=== PATIENT | female | born 1960 | race African-American/Black ===

== ENCOUNTER 2018-09-07 16:26 | Emergency (ER) | payer OTHER | END 2018-09-07 19:56 | disposition home or self-care (01) | LOC: JERFT 16:26 ==

== ENCOUNTER 2018-12-22 13:14 | Emergency (ER) | payer OTHER ==
[2018-12-22 13:24] VITALS: BP 136/66; PULSE 89; TEMP 98.2; BMI 79.2
[2018-12-22] MEDS ORDERED: LIDOCAINE 5% TOPICAL PATCH TP ONE (14:02)
[2018-12-22] MEDS ORDERED: KETOROLAC TROMETHAMINE 60 MG/2 ML VIAL IM ONE (14:02)
[2018-12-22] MEDS ORDERED: METHOCARBAMOL 500 MG TABLET PO ONE (14:02)
--- NOTE | 2018-12-22 14:14 | PDOC ---
History of Present Illness - General Chief Complaint: Chronic pain Stated Complaint: BACK PAIN Time Seen by Provider: 12/22/18 13:52 History Source: Patient Exam Limitations: Clinical Condition - History of Present Illness Initial Comments: 12/22/18 14:07 Patient with h/o RA, DJD, asthma, sciatica and arthritis being followed up by orthopedics pain management at [facility] and being treated with diclofenac gel, gabapentin presenting with complains of worsening lower back radiating down b/l legs which has not been improving with gabapentin meds. Patient report she was on chronic steroids for rheumatoid arthritis but was told by her PCP she couldnt be taken any more steroids. Denies saddle paresthesia, fecal or urine incontinence. Patient request referral to community development specialist. Occurred: reports: other (2 months) Past History - Past Medical History Allergies/Adverse Reactions: Allergies Allergy/AdvReac Type Severity Reaction Status Date / Time No Known Allergies Allergy Verified 09/07/18 16:43 Home Medications: Ambulatory Orders Ketorolac Tromethamine [Toradol] 10 mg PO Q8H PRN #28 tablet 12/22/18 Lidocaine 5% Patch [Lidoderm -] 1 patch TP DAILY #30 patch 12/22/18 Methocarbamol [Robaxin -] 500 mg PO BID PRN #14 tablet 12/22/18 Asthma: Yes COPD: No Diabetes: Yes Other medical history: degenerative disc disease, rheumatoid arthritis,osteo - Immunization History Immunization Up to Date: No - Psycho Social/Smoking Cessation Hx Smoking History: Unknown if ever smoked Have you smoked in the past 12 months: No Information on smoking cessation initiated: No Hx Alcohol Use: No Drug/Substance Use Hx: No Review of Systems - Review of Systems Able to Perform ROS?: Yes Is the patient limited Chinese proficient: No Constitutional: No: Fever, Malaise, Weakness HEENTM: No: Symptoms Reported Respiratory: No: Symptoms reported Cardiac (ROS): No: Symptoms Reported ABD/GI: No: Nausea, Vomiting : No: Burning, Dysuria, Frequency, Flank Pain, Hematuria, Urgency Musculoskeletal: Yes: Symptoms Reported, See HPI, Back Pain (b/l lower back pain radiating down legs), Muscle Pain. No: Muscle Weakness Integumentary: No: Symptoms Reported, See HPI Neurological: Yes: Symptoms reported, See HPI, Numbness (posterior thigh), Tingling. No: Paresthesia, Weakness All Other Systems: Reviewed and Negative *Physical Exam - Vital Signs Last Vital Signs Temp Pulse Resp BP Pulse Ox 98.2 F 89 16 136/66 98 12/22/18 13:20 12/22/18 13:20 12/22/18 13:20 12/22/18 13:20 12/22/18 13:20 - Physical Exam Comments: 12/22/18 14:27 GENERAL: Well developed, well nourished. Awake and alert in moderate acute distress. PULMONARY: No evidence of respiratory distress. ABDOMINAL: Soft. Non-tender. Non-distended. No rebound or guarding. No organomegaly. Normoactive bowel sounds MUSCULOSKELETAL : moderate tenderness over posterior paravertebral muscle of lumbosacral spine of L3-S2 on bilateral sides. No bony deformities . SKIN: Warm and dry. Normal capillary refill. NEUROLOGICAL: Alert, awake, appropriate. No motor deficits in the lower extremities. Gait is normal without ataxia with cane. PSYCHIATRIC: Cooperative. Good eye contact. Appropriate mood and affect. General Appearance: Yes: Nourished, Appropriately Dressed. No: Apparent Distress HEENT: positive: Normal ENT Inspection Neck: negative: Supple Medical Decision Making - Medical Decision Making 12/22/18 14:31 Patient with h/o RA, DJD, asthma, sciatica and arthritis being followed up by orthopedics pain management at [facility] and being treated with diclofenac gel, gabapentin presenting with complains of worsening lower back radiating down b/l legs which has not been improving with gabapentin meds. Patient report she was on chronic steroids for rheumatoid arthritis but was told by her PCP she couldnt be taken any more steroids. Denies saddle paresthesia, fecal or urine incontinence. Patient request referral to community development specialist. Exam significant for moderate TTP to b/l paravertebral msucle of lumbosacral spine of L3-S2 ON B/L side cw/ with pt h/o sciatica. Patient report had MRI done w and was told to have multiple disc herniations on lumbar spine Toradol 60mg IM, robaxin 500mg PO and lidocaine patch ordered for pain and muscle spasm. reassess after 30mins 12/22/18 15:08 Patient feeling better now. Patient stable for discharge on PO Toradol and lidoderm prn for pain and Robaxin prn for back spasm with neurospine f/u Discharge - Discharge Information Problems reviewed: Yes Clinical Impression/Diagnosis: Sciatic leg pain Lumbago with sciatica, unspecified side Qualifiers: Chronicity: acute Back pain laterality: bilateral Sciatica laterality: bilateral sciatica Qualified Code(s): M54.42 - Lumbago with sciatica, left side Condition: Stable - Admission No - Additional Discharge Information Prescriptions: Ketorolac Tromethamine [Toradol] 10 mg PO Q8H PRN #28 tablet PRN Reason: Back Pain Lidocaine 5% Patch [Lidoderm -] 1 patch TP DAILY #30 patch Methocarbamol [Robaxin -] 500 mg PO BID PRN #14 tablet PRN Reason: Back Pain - Follow up/Referral Referrals: Oscar Sheth MD, [facility] [Staff Physician] - - Patient Discharge Instructions Patient Printed Discharge Instructions: DI for Back Pain With Sciatica Additional Instructions: Take medications as prescribed. Follow-up with referred orthopedics community development specialist as soon as possible for management of chronic back pains - Post Discharge Activity
[2018-12-22] MEDS ORDERED: LIDOCAINE 5% TOPICAL PATCH ONE (14:16)
[2018-12-22] MEDS ORDERED: METHOCARBAMOL 500 MG TABLET ONE (14:16)
[2018-12-22] MEDS ORDERED: KETOROLAC TROMETHAMINE 60 MG/2 ML VIAL ONE (14:16)
[2018-12-22] MEDS ORDERED: LIDOCAINE PATCH REMOVAL MC SCH (22:00)
== END 2018-12-22 15:18 | disposition home or self-care (01) ==
LOC: JERFT 13:14 → JER 13:14
PROC: 3E0233Z Introduction of Anti-inflammatory into Muscle, Percutaneous Approach (ICD-10-PCS; principal; 2018-12-22)
DX: M54.42 Lumbago with sciatica, left side (principal); M06.9 Rheumatoid arthritis, unspecified; M19.90 Unspecified osteoarthritis, unspecified site; E11.9 Type 2 diabetes mellitus without complications; J45.909 Unspecified asthma, uncomplicated
CPT/HCPCS: 96372; 99282-25

== ENCOUNTER 2019-04-28 03:01 | Emergency (ER) | payer OTHER ==
[2019-04-28 03:20] VITALS: BMI 20.7
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
[2019-04-28] MEDS ORDERED: ACETAMINOPHEN 500 MG TABLET (FP) PO ONE (04:12)
[2019-04-28] MEDS ORDERED: ACETAMINOPHEN 325 MG TABLET (FP) ONE (04:15)
[2019-04-28] MEDS ORDERED: LIDOCAINE 5% TOPICAL PATCH TP ONE (04:29)
[2019-04-28] MEDS ORDERED: LIDOCAINE 5% TOPICAL PATCH ONE (04:43)
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
[2019-04-28 06:48] VITALS: BP 128/62; PULSE 83; TEMP 97.5
[2019-04-28] MEDS ORDERED: LIDOCAINE PATCH REMOVAL MC SCH (22:00)
== END 2019-04-28 07:08 | disposition home or self-care (01) ==
LOC: JER 03:01
PROC: 0HQ0XZZ Repair Scalp Skin, External Approach (ICD-10-PCS; principal; 2019-04-28)
DX: S01.01XA Laceration without foreign body of scalp, initial encounter (principal); S00.03XA Contusion of scalp, initial encounter; Y04.2XXA Assault by strike against or bumped into by another person, initial encounter; Y93.89 Activity, other specified; Y92.038 Other place in apartment as the place of occurrence of the external cause; Y99.8 Other external cause status; Y07.499 Other family member, perpetrator of maltreatment and neglect
CPT/HCPCS: 12011-25; 70450-TC; 72125-TC; 99284-25

== ENCOUNTER 2020-10-18 15:40 | Emergency (ER) | payer OTHER ==
[2020-10-18 15:53] VITALS: TEMP 97.9; BMI 36.2
[2020-10-18] MEDS ORDERED: ACETAMINOPHEN 1000 MG/100 ML VIAL (NON FORMULARY) IVPB ONE (17:28)
[2020-10-18] MEDS ORDERED: METOCLOPRAMIDE HCL INJECTION 10 MG/2 ML VIAL IVPUSH ONE (17:28)
[2020-10-18] MEDS ORDERED: SODIUM CHLORIDE 0.9% 500 ML INFUS.BAG IV ONE (17:28)
[2020-10-18] MEDS ORDERED: METOCLOPRAMIDE HCL INJECTION 10 MG/2 ML VIAL ONE (17:39)
[2020-10-18] MEDS ORDERED: ACETAMINOPHEN INJECTION 100 ML IVPB ONE (17:39)
[2020-10-18 20:28] VITALS: BP 153/100; PULSE 85
== END 2020-10-18 20:33 | disposition home or self-care (01) ==
LOC: JER 15:40
PROC: 3E0333Z Introduction of Anti-inflammatory into Peripheral Vein, Percutaneous Approach (ICD-10-PCS; principal; 2020-10-18)
PROC: 3E033GC Introduction of Other Therapeutic Substance into Peripheral Vein, Percutaneous Approach (ICD-10-PCS; 2020-10-18)
DX: R51.9 Headache, unspecified (principal)
CPT/HCPCS: 70450-TC; 93971-TC; 99284-25; J0131

== ENCOUNTER 2021-10-14 13:31 | Emergency (ER) | payer BC, OTHER ==
[2021-10-14 13:50] VITALS: BP 161/92; PULSE 115; TEMP 97.9; BMI 36.6
[2021-10-14] MEDS ORDERED: ACETAMINOPHEN 500 MG TABLET (FP) PO ONE (15:01)
[2021-10-14] MEDS ORDERED: ACETAMINOPHEN 500 MG TABLET (FP) ONE (15:04)
[2021-10-14] MEDS ORDERED: LIDOCAINE 5% TOPICAL PATCH TP ONE (15:06)
[2021-10-14] MEDS ORDERED: LIDOCAINE 5% TOPICAL PATCH ONE (15:16)
[2021-10-14] MEDS ORDERED: LIDOCAINE PATCH REMOVAL MC SCH (22:00)
== END 2021-10-14 17:04 | disposition home or self-care (01) ==
LOC: JER 13:31
DX: M54.9 Dorsalgia, unspecified (principal); M25.569 Pain in unspecified knee
CPT/HCPCS: 72100-TC-FY; 73562-TC-LT-FY; 99284-25